=== PATIENT | female | born 1990 | race Caucasian/White ===

== ENCOUNTER 2021-02-17 19:24 | Emergency (ER) | payer OTHER, SELFPAY ==
[2021-02-17 19:38] VITALS: BP 126/86; PULSE 67
--- NOTE | 2021-02-17 19:55 | EDM.PDOC ---
ED HPI GENERAL MEDICAL PROBLEM - General Chief Complaint: Laceration Stated Complaint: FINGER LAC Time Seen by Provider: 02/17/21 19:43 Source of Information: Reports: Patient, RN Notes Reviewed History Limitations: Reports: No Limitations - History of Present Illness INITIAL COMMENTS - FREE TEXT/NARRATIVE: Pt is a 30 year old female presenting the ER with c/o laceration to her left index finger. Reports that she cut it on a broken jelly jar and can feel that there is a piece of glass stuck in the laceration. She tried to remove it at home with a tweezers but was unsuccessful. Last TDAP was approximately 3 years ago. Left Finger-Index Pain Score (Numeric/FACES): 2 - Related Data Allergies Allergy/AdvReac Type Severity Reaction Status Date / Time egg Allergy Cannot Verified 02/17/21 19:44 Remember milk Allergy Cannot Verified 02/17/21 19:44 Remember Penicillins Allergy Hives Verified 02/17/21 19:44 Past Medical History Other Gastrointestinal History: "stomach issues in general- nothing looked at" Genitourinary History: Reports: UTI, Recurrent [employer] History: Reports: Neurological History: Reports: Migraines Psychiatric History: Reports: Anxiety Other Dermatologic History: rosacea - Past Surgical History HEENT Surgical History: Reports: Oral Surgery Female Surgical History: Reports: Breast Biopsy Musculoskeletal Surgical History: Reports: Other (See Below) Social & Family History - Tobacco Use Tobacco Use Status *Q: Never Tobacco User - Caffeine Use Caffeine Use: Reports: None - Recreational Drug Use Recreational Drug Use: No ED ROS GENERAL - Review of Systems Review Of Systems: Comprehensive ROS is negative, except as noted in HPI. ED EXAM, SKIN/RASH Exam: See Below General Appearance: Alert, WD/WN, No Apparent Distress Respiratory/Chest: No Respiratory Distress, Lungs Clear, Normal Breath Sounds, No Accessory Muscle Use, Chest Non-Tender Cardiovascular: Normal Peripheral Pulses, Regular Rate, Rhythm, No Edema, No Gallop, No JVD, No Murmur, No Rub Neurological: Alert, Oriented, CN II-XII Intact, Normal Cognition, Normal Gait, Normal Reflexes, No Motor/Sensory Deficits Psychiatric: Normal Affect, Normal Mood Skin: Other (1 cm laceration to the ventral aspect of the left proximal second finger. No active bleeding.) ED SKIN PROCEDURES - Laceration/Wound Repair Left Proximal Ventral Digit - 2nd (Index) Appearance: Subcutaneous Distal NVT: Neuro & Vascular Intact, No Tendon Injury Anesthetic Type: Local Local Anesthesia - Lidocaine (Xylocaine): 1% Plain Skin Prep: Chlorhexidine (Hibiciens), Providone-Iodine (Betadine), Saline Exploration/Debridement/Repair: Wound Explored, In a Bloodless Field, Foreign Material Removed (Single, small shard of glass) Closed with: Sutures Lac/Wound length In cm: 1 Suture Size: 4-0 # of Sutures: 1 Suture Type: Nylon, Interrupted Sterile Dressing Applied: Provider Tetanus Status Addressed: Yes Complications: No Course - Vital Signs Last Recorded V/S: Last Vital Signs Temp 98.1 F 02/17/21 19:36 Pulse 67 02/17/21 19:36 Resp 14 02/17/21 19:36 BP 126/86 02/17/21 19:36 Pulse Ox 98 02/17/21 19:36 - Orders/Labs/Meds Meds: Medications Discontinued Medications Generic Name Dose Route Start Last Admin Trade Name Bro PRN Reason Stop Dose Admin Lidocaine HCl 10 ml 02/17/21 20:03 02/17/21 20:06 Lidocaine 1% 10 Ml Mdv INJECT 02/17/21 20:04 10 ml ONETIME ONE Administration - Re-Assessments/Exams Free Text/Narrative Re-Assessment/Exam: Patient is a 30-year-old female presenting to the emergency department with concerns of laceration to her left index finger with likely retained piece of glass. Patient reports that she can feel it with a tweezers but cannot grab it to pull it out. Her finger is currently soaking in a solution of CHG soap and sterile saline. I ordered x-rays of the finger to attempt to visualize the g lass. 02/17/21 21:14 X-ray of the left index finger shows a small shard of glass superficially within the laceration. See procedure notes. Discharge instructions as documented. Departure - Departure Time of Disposition: 21:16 Disposition: Home, Self-Care 01 Condition: Good Clinical Impression: Laceration - Discharge Information *PRESCRIPTION DRUG MONITORING PROGRAM REVIEWED*: No *COPY OF PRESCRIPTION DRUG MONITORING REPORT IN PATIENT RAMON: No Instructions: Laceration Care, Adult Referrals: PCP,None [Primary Care Provider] - Forms: ED Department Discharge Additional Instructions: You were seen in the emergency department today for a laceration to your left index finger with a piece of glass retained. The wound was cleansed. We were able to locate and remove the piece of glass. Your laceration was closed with 1 suture. These should stay intact for 5-7 days. After that time they may be removed in the clinic by a nurse. Keep the wound clean and dry. Wash with normal soap and water twice daily. Do not submerge the wound in water. Watch for signs of infection including increased redness, swelling, or purulent drainage. If these should occur, you should be seen either in the clinic or in the emergency department as antibiotic treatment may be needed. Return to the ER as needed. Sepsis Event Note (ED) - Evaluation Sepsis Screening Result: No Definite Risk
[2021-02-17] MEDS ORDERED: Lidocaine 1% 10 ML MDV INJECT ONE (20:03)
--- NOTE | 2021-02-18 07:21 | CR ---
Left second finger: 3 views centered to the left second finger were obtained. Comparison: No prior hand or finger study is available. Linear foreign body is projected within the soft tissues of the finger which is located slightly proximal to the PIP joint along the anterior and lateral aspect. This foreign body measures approximately 3.5 mm in greatest size. No acute fracture, dislocation or other bony abnormality is appreciated. Impression: 1. Linear foreign body within the left second finger as described above. 2. No acute osseous abnormality is seen. Diagnostic code #3
== END 2021-02-17 21:25 | disposition home or self-care (01) ==
LOC: JD.ED 19:24
DX: S61.211A Laceration without foreign body of left index finger without damage to nail, initial encounter (principal); Z88.0 Allergy status to penicillin; Z91.012 Allergy to eggs; Z91.011 Allergy to milk products; W26.8XXA Contact with other sharp object(s), not elsewhere classified, initial encounter
CPT/HCPCS: 12001; 73140-26-F1; 73140-F1; 99283-25